=== PATIENT | male | born 1980 | race Caucasian/White ===

== ENCOUNTER 2016-05-21 13:51 | Emergency (ER) | payer SELFPAY ==
[2016-05-21 15:12] LABS: APPEARANCE,URINE SLIGHTLY-CLOUDY; BILIRUBIN,URINE NEGATIVE (NEGATIVE); GLUCOSE, URINE NEGATIVE (NEGATIVE); KETONES,URINE 20 mg/dL (NEGATIVE); LEUKOCYTE ESTERASE,URINE NEGATIVE (NEGATIVE); NITRITE,URINE NEGATIVE (NEGATIVE); PROTEIN,URINE 30 mg/dL (NEGATIVE); URINE SPECIFIC GRAVITY 1.023; UROBILINOGEN,URINE NEGATIVE mg/dL (<2.0)
[2016-05-21 15:19] LABS: ALANINE AMINOTRANSFERASE 57 U/L (21-72); ALKALINE PHOSPHATASE 85 U/L (38-126); ASPARTATE AMINO TRANSFERASE 44 U/L (17-59); BILIRUBIN,TOTAL 1.2 mg/dL (0.2-1.3); BLOOD UREA NITROGEN 28 mg/dL (7-20); CALCIUM 10.5 mg/dL (8.4-10.2); CARBON DIOXIDE 18 mmol/L (22-30); CHLORIDE 99 mmol/L (98-107); CREATININE RESULT 1.43 mg/dL (0.52-1.25); GLUCOSE 105 mg/dL (75-110); POTASSIUM 4.1 mmol/L (3.6-5.0); SODIUM 137.3 mmol/L (137-145); TOTAL PROTEIN 8.1 g/dL (6.3-8.2)
[2016-05-21 15:20] LABS: ALCOHOL < 10 mg/dL (NONE DETECTED); ANION GAP 20 (5-19)
[2016-05-21 15:26] LABS: HEMATOCRIT 41.8 % (37.9-51.0); HEMOGLOBIN 14.4 g/dL (13.5-17.0); HGB HCT DIFFERENCE 1.4; MEAN CORPUSCULAR HEMOGLOBIN 27.6 pg (27.0-33.4); MEAN CORPUSCULAR HGB CONC 34.5 g/dL (32.0-36.0); MEAN CORPUSCULAR VOLUME 80 fl (80-97); RED BLOOD COUNT 5.22 10^6/uL (4.35-5.55); RED CELL DISTRIBUTION WIDTH 13.4 % (11.5-14.0)
[2016-05-21 15:28] LABS: BASOPHILS % (MANUAL) 0 % (0-2); EOSINOPHILS % (MANUAL) 0 % (0-6); LYMPHOCYTES % (MANUAL) 11 % (13-45); TOTAL CELLS COUNTED 100
[2016-05-21 15:28] LABS: URINE BARBITURATES SCREEN NEGATIVE; URINE METHADONE SCREEN NEGATIVE; URINE PHENCYCLIDINE SCREEN NEGATIVE
[2016-05-21 15:30] LABS: RBC MORPHOLOGY COMMENT NORMO-CYTIC/CHROMIC
--- NOTE | 2016-05-21 16:03 | ER Document Report ---
ED Psych Disorder / Suicide - General Mode of Arrival: Ambulatory Information source: Patient TRAVEL OUTSIDE OF THE [place] IN LAST 30 DAYS: No - HPI Patient complains to provider of: Other - see above Onset: Other - see above Associated symptoms: Other - see above <BALTAZAR MICHAELS - Last Filed: 05/21/16 18:37> <MIRNA BOWERS - Last Filed: 05/21/16 21:01> <KIT RUSH - Last Filed: 05/23/16 18:24> - General Chief Complaint: Psych Problem Stated Complaint: PSYCH EVAL Notes: 35 year old male with history of bipolar disorder presents to the ED complaining of difficulty sleeping that began 4-5 days ago and seeking help for mental health. Patient states that he ran away from his and kids because he didn't want them to see him in a manic state. Patient went to [place], but returned approximately 2 months ago. Patient was living at home for a few days before leaving again and staying at a local hotel. Patient states that he was arrested last night at the hotel. Patient explains that he didn't want to be at the house while his 's aunt was there. Patient states he has been manic before and the episode lasts a week, but this one is longer. Patient claims to have a history of PTSD and TBI, but they appear to be false according to his . (BALTAZAR MICHAELS) - Related Data Allergies/Adverse Reactions: No Known Allergies Allergy (Verified 05/23/16 11:21) Home Medications: Current Home Medications Amlodipine Besylate [Norvasc 2.5 mg Tablet] 2.5 mg PO DAILY 05/23/16 [History] Buprenorphine HCl [Subutex 8 mg Sublingual Tablet] 3 tab SL DAILY 05/23/16 [ History] Penicillin V Potassium [Penicillin Vk 500 mg Tablet] 500 mg PO Q6 05/23/16 [ History] Past Medical History - General Information source: Patient - Social History Smoking Status: Current Every Day Smoker Frequency of alcohol use: None Family History: Hypertension - Past Medical History Cardiac Medical History: Reports: Hx Hypercholesterolemia, Hx Hypertension Psychiatric Medical History: Reports: Hx Bipolar Disorder Past Surgical History: Reports: Hx Bowel Surgery - resection in 2003, Hx Orthopedic Surgery - knee reconstruction - Immunizations Hx Diphtheria, Pertussis, Tetanus Vaccination: Yes <BALTAZAR MICHAELS - Last Filed: 05/21/16 18:37> Review of Systems - Review of Systems Constitutional: No symptoms reported EENT: No symptoms reported Cardiovascular: No symptoms reported Respiratory: No symptoms reported Gastrointestinal: No symptoms reported Genitourinary: No symptoms reported Male Genitourinary: No symptoms reported Musculoskeletal: No symptoms reported Skin: No symptoms reported Hematologic/Lymphatic: No symptoms reported Neurological/Psychological: See HPI, Other - difficulty sleeping and having manic episode -: Yes All other systems reviewed and negative <XENIABALTAZAR - Last Filed: 05/21/16 18:37> Physical Exam - General General appearance: Alert, Other - Patient is unable to sit still. In distress: None - HEENT Head: Normocephalic, Atraumatic Eyes: Normal Extraocular movements intact: Yes Pupils: PERRL Mouth/Lips: Other - dental decay of the left lower 1st molar with associated swelling - Respiratory Respiratory status: No respiratory distress Breath sounds: Normal - Cardiovascular Rhythm: Regular, Tachycardia Heart sounds: Normal auscultation Murmur: No - Abdominal Inspection: Normal - Back Back: Normal - Extremities General upper extremity: Normal inspection, Normal ROM General lower extremity: Normal inspection, Normal ROM - Neurological Neuro grossly intact: Yes - Psychological Associated symptoms: Normal affect, Flight of ideas - Skin Skin Temperature: Warm Skin Moisture: Dry Skin Color: Normal <JUSTYN MICHAELSUR - Last Filed: 05/21/16 18:37> Course - Laboratory Result Diagrams: 05/21/16 14:45 05/21/16 14:45 <JUSTYN MICHAELSUR - Last Filed: 05/21/16 18:37> - Laboratory Result Diagrams: 05/21/16 14:45 05/21/16 14:45 - EKG Interpretation by Nh EKG shows normal: Sinus rhythm, [place], Intervals, QRS Complexes, ST-T Waves Rate: Tachycardia - 120 P Waves: LAE <MIRNA BOWERS - Last Filed: 05/21/16 21:01> - Laboratory Result Diagrams: 05/23/16 17:30 05/23/16 17:30 <KIT RUSH - Last Filed: 05/23/16 18:24> - Re-evaluation Re-evalutation: 05/21/16 21:00 IVC paper work was filled out. The patient became sedate after the injection of Haldol, Benadryl, and Ativan. (MIRNA BOWERS) - Vital Signs Vital signs: Temp Pulse Resp BP Pulse Ox 98.5 F 86 18 113/66 95 05/23/16 06:37 05/23/16 06:37 05/23/16 06:37 05/23/16 06:37 05/23/16 06:37 (KIT RUSH) - Laboratory Laboratory results interpreted by me: 05/21/16 05/21/16 05/21/16 14:15 14:45 14:45 WBC 22.0 H Hgb Seg Neuts % (Manual) 87 H Lymphocytes % (Manual) 11 L Monocytes % (Manual) 2 L Abs Neuts (Manual) 19.1 H Carbon Dioxide 18 L Anion Gap 20 H BUN 28 H Creatinine 1.43 H Est GFR (Non-Af Amer) 56 L Calcium 10.5 H Urine Protein 30 H Urine Ketones 20 H Urine Blood SMALL H Salicylates < 1.0 L Acetaminophen < 10 L Valproic Acid 05/23/16 05/23/16 15:32 17:30 WBC Hgb 13.4 L Seg Neuts % (Manual) Lymphocytes % (Manual) Monocytes % (Manual) Abs Neuts (Manual) Carbon Dioxide Anion Gap BUN Creatinine Est GFR (Non-Af Amer) Calcium Urine Protein Urine Ketones Urine Blood Salicylates Acetaminophen Valproic Acid 43.1 L (BALTAZAR MICHAELS) (MIRNA BOWERS) (KIT RUSH) Discharge <BALTAZAR MICHAELS - Last Filed: 05/21/16 18:37> <MIRNA BOWERS - Last Filed: 05/21/16 21:01> <KIT RUSH - Last Filed: 05/23/16 18:24> - Discharge Clinical Impression: Manic psychosis, Bipolar disorder Condition: Stable Disposition: HOME, SELF-CARE Additional Instructions: Bipolar Disorder Bipolar disorder is also called manic-depressive disorder. Depression alternates with brain hyperactivity called prabhjot. Each phase lasts from several days to a few weeks. We don't know exactly what causes bipolar disorder , but it's treatable. During the "manic phase," you may feel elated and energetic. You may have racing thoughts, rapid speech, increased activity, and grandiose ideas. During this time, you may not realize how poor your judgement is. Inappropriate spending, drug abuse, excessive alcohol use, marriage problems, and irresponsible sexual behavior are common during the manic phase. During the "depressive phase," you might feel depressed, guilty, worthless , fatigued, and unable to concentrate. You might have thoughts of suicide. Good treatments are available for bipolar disorder. [place] is a classic drug for bipolar disorder, and is still often useful. If the manic phase is very mild, an antidepressant alone can be prescribed. If the manic phase is very severe, an antipsychotic medicine (such as Haldol) may be needed. The treatment must be matched to your symptoms, so it's important to work closely with your psychiatric care provider. Contact your physician, the hospital emergency center, crisis line, or your counsellor if you are losing control or having self-destructive thoughts. Post-Traumatic Stress Disorder You seem to have post-traumatic stress disorder (PTSD). PTSD can cause chronic anxiety, sleeping problems, social withdrawal, and drug abuse. It can occur following a traumatic personal experience such as an accident, rape, assault, or of a loved one, or after experiencing a war or natural disaster. Symptoms may be delayed for days or even years. Emotional numbing, the inability to express grief, is usually the earliest sign. There may be apathy or agitation, aggression, and inability to perform ordinary tasks. Often there are frightening nightmares and sudden, intruding memories of the trauma. Panic attacks and feelings of guilt are common. Alcohol and drug use make post- traumatic stress symptoms worse. Medication may be temporarily necessary to combat anxiety, panic attacks, and depression. Medicine should not be considered a "cure." You must deal with the trauma and prepare to go on. Group therapy is often helpful. This helps you "talk through" the problem with others who share your symptoms. We can provide you with an appropriate referral. FOLLOW-UP CARE: If you have been referred to a physician for follow-up care, call the physician s office for an appointment as you were instructed or within the next two days. If you experience worsening or a significant change in your symptoms, notify the physician immediately or return to the Emergency Department at any time for re-evaluation. You are advised to keep your appointment to be seen at the [facility] next week. Take the medications prescribed. Return if you have new or worsening symptoms. Prescriptions: Benztropine Mesylate [Cogentin 1 mg Tablet] 1 mg PO DAILY #10 tablet Divalproex Sodium [Depakote ER 500 mg Tab.sr] 500 mg PO BID #20 tab.sr.24h Olanzapine [Zyprexa 5 mg Tablet] 5 mg PO BID #20 tablet Referrals: [facility] [Provider Group] - Follow up in 1 week Scribe Attestation: 05/21/16 18:14 I personally performed the services described in the documentation, reviewed and edited the documentation which was dictated to the scribe in my presence, and it accurately records my words and actions. (MIRNA BOWERS) Scribe Documentation - Scribe Written by Keyon:: Keyon Lopez, 05/21/2016 16:41 acting as scribe for :: Ary <BALTAZAR MICHAELS - Last Filed: 05/21/16 18:37>
[2016-05-21] MEDS ORDERED: HALOPERIDOL LACTATE INJ 5 MG/1 ML VIAL IM ONE (16:04)
[2016-05-21] MEDS ORDERED: LORAZEPAM INJ 2 MG/1 ML VIAL IM ONE (16:04)
[2016-05-21] MEDS ORDERED: DIPHENHYDRAMINE HCL 50 MG/ML VIAL IM ONE (16:04)
--- NOTE | 2016-05-21 16:50 | PSYCHOLOGICAL NOTE ---
Psych Note - Psych Note Psych Note: Patient is a 35 year old male who presents voluntarily seeking assistance for his mental health concerns. Note, patient was seen overnight with his for toot related pain and discharged this morning. Patient at this time presents with flight of ideas and is difficult to follow. Patient does disclose that he has been staying at a hotel for 4 days because his 's family was in town visiting, and he has not slept. He states he has had similar type episodes in the past, but not this bad. Patient reports he is a [employer] and 100% service connected for TBI and PTSD. Patient is not able to provide any additional meaningful information due to mental status. Patient's , Michael Thompson states: the patient has been staying in a hotel for 4 days because her Aunt was visiting. She states he called her in the middle of the night because people were watching him, trying to jump him and fight him, hearing sounds, etc. She states she went there and discovered nothing/no one. She states this happened 2 additional times, and again last night the patient called her stating someone was in his room and they bugged the room to start a prostitution ring. She states [employer] was called because he was escalated and screaming that he lost their daughter. reports she went to the room, and got him and ate food, etc. He was brought to the ED because of the tooth abscess, where he was treated for high BP, etc and discharged. He convinced her that he was ok to go back to the hotel to go to sleep. She reports she tried to visit later in the day, but the manager revenue states he was arrested for breaking and entering, etc. She states she went to [place]osto him out, and he was manic, rambling, accusing her of performing sexual acts on other inmates, etc. She states when they were driving he was upset stating that their car was bugged, etc and she brought him to the ED for help. reports she has never seen this level of paranoia, etc. reports the patient does have a baseline of hypervigelence, and patrols the house and is always in "protective mode." reports they are just now in the process [facility] starting the [facility]. She reports they began the process in November after he lost his job. She states he told her that they fired him, but she is not sure if it is the truth. 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 She states in January, he left her and the kids and went [place] and moved in with another female. She states he returned from [place] April 19 and that is when his paranoia increased. She states the patient form the in February in 2005, but immediately contracted and went to [facility]. She states he ended the contract work in 2011, took a year off for school, etc. She states the patient is prescribed Suboxone for pain, and would often take a Xanax type medication and become a zombie like individual for a week at a time. She states the MD who is prescribing Suboxone , is also prescribing Adderall. She states she is not sure what he has taken or how much. She states he is fixated on her having a boyfriend, etc. She states she has her 8 and 11 year old kids and does have a place for them to go, in addition to concerns over them seeing him at this level. reports his parents are arriving for a visit around midnight, and she will encourage them to come to the house and visit in the morning. Note, is specific to state the patient has not officially been diagnosed with TBI and PTSD. Patient is alert and restless and oriented to name and location and day. Patient 's mood is manic/labile with congruent affects. Patient denies suicidal/ homicidal ideations. Patient presents paranoid. Patient presented with flight of ideas. Conversational speech was pressured and tangential. Intellectual abilities were estimated within average range. Attention and focus were poor. Insight, judgment, and impulse control were poor. 296.80 (F31.9) Unspecified Bipolar and Related Disorder Patient's presenting symptoms (Dominique) are similar to that of a Bipolar Disorder and cause clinically significant distress in all domains of his life At this time and in this setting (ED) there is not enough information to make a more specific diagnosis as often times PTSD can present similar to Bipolar episodes. R/O PTSD Patient is recommended for IVC and to seek 24 hour inpatient psychiatric commitment. Patient presents acutely manic, with paranoia and delusions. The safety concerns noted also include the patient pursuing his delusions resulting in his arrest (going through cars parked at the hotel to detect tracking/ listening devices). Patient has not slept in 4 days, and requires psychiatric intervention for his safety and the safety of others. I consulted with Dr. Owen in regards to the care and management of this patient. ED MD is in agreement with disposition and recommendations.
--- NOTE | 2016-05-21 21:20 | EKG REPORT ---
SEVERITY:- BORDERLINE ECG - SINUS TACHYCARDIA PROBABLE LEFT ATRIAL ABNORMALITY : Confirmed by: Brandon Santoro MD 21-May-2016 21:19:53
[2016-05-21] MEDS: OLANZAPINE 5 MG TAB.RAPDIS PO PRN (22:40)
[2016-05-21] MEDS: BENZTROPINE MESYLATE 1 MG TABLET PO SCH (22:40)
--- NOTE | 2016-05-22 09:25 | ER Document Report ---
Doctor's Note Notes: 05/22/16 09:24 I have evaluated this pt. this am and he has no c/o at this time. He feels all of his needs are being met and his physical exam is normal. He is awaiting disposition per mental health.
[2016-05-22] MEDS: DIVALPROEX SODIUM 500 MG TAB.SR.24H PO SCH ×2 (10:04→17:45)
[2016-05-22] MEDS: OLANZAPINE 5 MG TABLET PO SCH ×2 (10:05→21:31)
[2016-05-22] MEDS: AMOXICILLIN TRIHYDRATE 500 MG CAPSULE PO SCH ×2 (10:05→21:32)
--- NOTE | 2016-05-22 15:50 | ER Document Report ---
Doctor's Note Notes: 05/22/16 15:49 Pt. has asked to take his own suboxone which he takes bid. We have contracted Dr. Owen who has given him permission to do so.
--- NOTE | 2016-05-22 17:15 | PSYCHOLOGICAL NOTE ---
Psych Note - Psych Note Psych Note: Patient is a 35 year old male who is under IVC at [facility] ED after he presented voluntarily seeking assistance while in a manic state. Patient was observed to be responding to internal stimuli, paranoid, etc and subsequently petitioned for IVC by ED MD. Patient initially reported he had not slept x4days; however, has slept all night and throughout this morning with pharmacological intervention. Per the IVC process, patient was referred to psychiatric placements and accepted at 1500 today. Patient's parents have driven down from [place] to visit and present bedside. Patient provided verbal consent to speak with them. Made patient aware this afternoon that he was accepted to [facility] in [place]. Patient expressed discontent with the placement and stated he wanted the help, but wanted to go on his own terms. Patient vacillated between stating he would not go because he wanted to smoke a cigarette. Patient was eventually redirected and remained calm, although fixated on smoking a cigarette. Mother and Father collectively report concerns over patient's long time prescription Suboxone and now Adderall. They asked numerous questions regarding the placement at [facility], and all questions were answered to the best of my ability. Family provided phone number to facility for clarification purposes. Discussed with patient's the likelihood of placement and what is entailed. requested information due to patient's first appearance at court tomorrow morning for the arrest. verbalized she understood, and additionally reported she understood the necessity of the placement. Patient is A&Ox4. Mood is labile with occasionally tearful affect. Patient denies suicidal/homicidal ideations. Patient continues to present with some paranoia, and is upset that people are out to get him. Thought processes were perseverative. Conversational speech was pressured for rate, tone, and prosody. Intellectual abilities were estimated within average range. Attention and focus were fair. Insight, judgment, and impulse control were poor. 296.80 (F31.9) Unspecified Bipolar and Related Disorder Patient's presenting symptoms (Dominique) are similar to that of a Bipolar Disorder and cause clinically significant distress in all domains of his life At this time and in this setting (ED) there is not enough information to make a more specific diagnosis as often times PTSD can present similar to Bipolar episodes. R/O PTSD Patient is recommended for IVC and to follow through with placement at the 24 hour inpatient psychiatric hospital. I consulted with Dr. Owen in regards to the care and management of this patient. ED MD is in agreement with disposition and recommendations.
[2016-05-22] MEDS: BENZTROPINE MESYLATE 1 MG TABLET PO SCH (21:31)
[2016-05-22] MEDS ORDERED: ATORVASTATIN CALCIUM 20 MG TABLET PO SCH (22:00)
[2016-05-22] MEDS ORDERED: BENZTROPINE MESYLATE 1 MG TABLET PO SCH (22:00)
[2016-05-23] MEDS ORDERED: PENICILLIN V POTASSIUM 500 MG TABLET PO SCH
[2016-05-23] MEDS: OLANZAPINE 5 MG TAB.RAPDIS PO PRN (03:01)
[2016-05-23] MEDS ORDERED: OLANZAPINE 5 MG TAB.RAPDIS PO PRN (09:49)
[2016-05-23] MEDS ORDERED: [UNRECOGNIZED DRUG - OTHER] SL SCH (10:00)
[2016-05-23] MEDS: OLANZAPINE 5 MG TABLET PO SCH (10:07)
[2016-05-23] MEDS: AMOXICILLIN TRIHYDRATE 500 MG CAPSULE PO SCH (10:07)
[2016-05-23] MEDS: DIVALPROEX SODIUM 500 MG TAB.SR.24H PO SCH (10:07)
--- NOTE | 2016-05-23 16:48 | PSYCHOLOGICAL NOTE ---
Psych Note - Psych Note Psych Note: Patient is a 35-year-old male who is under involuntary commitment at [facility] ED for psychotic episode. Note patient was evaluated yesterday referred [facility] and [facility]; however due to transportation issues with the [employer] programmer's department patient was unable to follow through with placement. Patient today was reevaluated for continued criteria for involuntary commitment. Patient today is calm and cooperative. Patient Patient's Patient's mother is bedside and requested update into the status of patient's care discussed with mother and patient that his packet was being reviewed by additional hospitals and that [facility] does not have a bed for him today. Answered all questions to the best of my ability regarding the incident last night and what happened with transportation and why he no longer has the bed. Mother reported concerns that the longer the patient sits here waiting to go somewhere the more anxious he will get. 296.80 (F31.9) Unspecified Bipolar and Related Disorder Patient's presenting symptoms (Dominique) are similar to that of a Bipolar Disorder and cause clinically significant distress in all domains of his life At this time and in this setting (ED) there is not enough information to make a more specific diagnosis as often times PTSD can present similar to Bipolar episodes. R/O PTSD
[2016-05-23 17:44] LABS: ABSOLUTE EOSINOPHILS # (AUTO) 0.1 10^3/uL (0.0-0.6); ABSOLUTE LYMPHOCYTES (AUTO) 2.4 10^3/uL (0.5-4.7); ABSOLUTE MONOCYTES (AUTO) 0.8 10^3/uL (0.1-1.4); ABSOLUTE NEUT (AUTO) 3.2 10^3/uL (1.7-8.2); BASOPHILS % (AUTO) 0.6 % (0-2); EOSINOPHILS % (AUTO) 1.5 % (0-6); HEMATOCRIT 38.6 % (37.9-51.0); HEMOGLOBIN 13.4 g/dL (13.5-17.0); HGB HCT DIFFERENCE 1.6; LYMPHOCYTES % (AUTO) 36.1 % (13-45); MEAN CORPUSCULAR HEMOGLOBIN 27.9 pg (27.0-33.4); MEAN CORPUSCULAR HGB CONC 34.8 g/dL (32.0-36.0); MEAN CORPUSCULAR VOLUME 80 fl (80-97); MONOCYTES % (AUTO) 12.4 % (3-13); RED BLOOD COUNT 4.81 10^6/uL (4.35-5.55); SEGMENTED NEUTROPHILS % (AUTO) 49.4 % (42-78); WHITE BLOOD COUNT 6.6 10^3/uL (4.0-10.5)
[2016-05-23 17:53] LABS: ALANINE AMINOTRANSFERASE 49 U/L (21-72); ALBUMIN 3.5 g/dL (3.5-5.0); ALKALINE PHOSPHATASE 57 U/L (38-126); ANION GAP 12 (5-19); ASPARTATE AMINO TRANSFERASE 21 U/L (17-59); BILIRUBIN,TOTAL 0.4 mg/dL (0.2-1.3); BLOOD UREA NITROGEN 16 mg/dL (7-20); CALCIUM 9.4 mg/dL (8.4-10.2); CARBON DIOXIDE 27 mmol/L (22-30); CHLORIDE 102 mmol/L (98-107); CREATININE RESULT 1.11 mg/dL (0.52-1.25); GLUCOSE 103 mg/dL (75-110); SODIUM 140.9 mmol/L (137-145); TOTAL PROTEIN 6.4 g/dL (6.3-8.2)
--- NOTE | 2016-05-23 18:19 | ER Document Report ---
Doctor's Note Notes: 05/23/16 18:17 Rounds: Chart reviewed and patient interviewed. Patient is being evaluated for bipolar disorder with manic behavior as well as PTSD.. He's been stable throughout his stay. Vital signs are normal. His initial WBC count was 22,000 , but he has declined to 6000 this afternoon. His original urinalysis was negative. Abdominal chest x-ray this afternoon it's negative. Patient has no signs or symptoms of infection anywhere. Patient appears to be medically stable for transfer or discharge. Mental health has evaluated the patient feels he can be discharged with prescriptions for Zyprexa and Depakote and [facility]. Heike Hernandez M.D.
[2016-05-23 18:36] VITALS: BP 111/84
== END 2016-05-23 18:45 | disposition home or self-care (01) ==
LOC: ER 13:51
DX: F31.89 Other bipolar disorder (principal); F17.200 Nicotine dependence, unspecified, uncomplicated; E78.00 Pure hypercholesterolemia, unspecified; I10 Essential (primary) hypertension
CPT/HCPCS: 93005; 99285; 96372; 36415; 85025; 80053; 81001; 80164; 71020; 93010; G0479 ×4; J3490 ×2; J1200; J1630; J2060; 80307

== ENCOUNTER → 2016-12-29 | Outpatient (CLI) | payer OTHER ==
--- NOTE | 2016-12-29 11:12 | RADIOLOGY REPORT (SQ) ---
EXAM DESCRIPTION: KNEE LEFT 4 VIEW COMPLETED DATE/TIME: 12/29/2016 10:48 am REASON FOR STUDY: ARTHRITIS COMPARISON: None. NUMBER OF VIEWS: Four views. TECHNIQUE: AP, lateral, and both oblique radiographic images acquired of the left knee. LIMITATIONS: None. FINDINGS: MINERALIZATION: Normal. BONES: No acute fracture or dislocation. No worrisome bone lesions. JOINT: No effusion. SOFT TISSUES: No soft tissue swelling. No radio-opaque foreign body. 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 IMPRESSION: NEGATIVE STUDY OF THE LEFT KNEE. NO RADIOGRAPHIC EVIDENCE OF ACUTE INJURY. TECHNICAL DOCUMENTATION: JOB ID: [id number] [employer]- All Rights Reserved
--- NOTE | 2016-12-29 11:25 | RADIOLOGY REPORT (SQ) ---
EXAM DESCRIPTION: L SPINE 2 VIEWS COMPLETED DATE/TIME: 12/29/2016 10:48 am REASON FOR STUDY: ARTHRITIS COMPARISON: 09/16/2008 NUMBER OF VIEWS: Two views. TECHNIQUE: AP and lateral radiographic images acquired of the lumbar spine. LIMITATIONS: None. FINDINGS: MINERALIZATION: Normal. SEGMENTATION: Normal. No transitional anatomy. ALIGNMENT: Normal. VERTEBRAE: Maintained height. No fracture or worrisome bone lesion. DISCS: Preserved height. No significant osteophytes or end plate irregularity. POSTERIOR ELEMENTS: Pedicles and facets are intact. No pars defect or posterior arch defects. HARDWARE: None in the spine. PARASPINAL SOFT TISSUES: Normal. PELVIS: Intact as visualized. No fractures or worrisome bone lesions. SI joints intact. OTHER: No other significant finding. IMPRESSION: NORMAL 2 VIEW LUMBAR SPINE. TECHNICAL DOCUMENTATION: JOB ID: [id number] [employer]- All Rights Reserved
--- NOTE | 2016-12-29 11:25 | RADIOLOGY REPORT (SQ) ---
EXAM DESCRIPTION: KNEE RIGHT 4 VIEWS COMPLETED DATE/TIME: 12/29/2016 10:48 am REASON FOR STUDY: ARTHRITIS COMPARISON: None. NUMBER OF VIEWS: Four views. TECHNIQUE: AP, lateral, and both oblique radiographic images acquired of the right knee. LIMITATIONS: None. FINDINGS: MINERALIZATION: Normal. BONES: No acute fracture or dislocation. No worrisome bone lesions. JOINT: No joint effusion. There is mild joint space narrowing in all compartments. This is symmetri c. SOFT TISSUES: No soft tissue swelling. No radio-opaque foreign body. OTHER: No other significant finding. IMPRESSION: Mild joint space narrowing in all compartments. No joint effusion. TECHNICAL DOCUMENTATION: JOB ID: [id number] [employer]- All Rights Reserved
== END ==
LOC: RAD 10:02
PROVIDERS: ATTEND Thoracic Surgery (Cardiothoracic Vascular Surgery)
DX: M19.90 Unspecified osteoarthritis, unspecified site (principal); M94.0 Chondrocostal junction syndrome [Tietze]
CPT/HCPCS: 72100

== ENCOUNTER 2017-05-01 09:42 | Emergency (ER) | payer OTHER ==
[2017-05-01 09:53] VITALS: BP 193/111
[2017-05-01] MEDS ORDERED: LIDOCAINE 1% INJ-PF (10 MG/ML) 30 ML SDV INJ ONE (10:40)
[2017-05-01] MEDS ORDERED: CEFTRIAXONE INJ 1000 MG VIAL IM ONE (10:40)
[2017-05-01] MEDS ORDERED: KETOROLAC TROMETHAMINE 60 MG/2 ML SDV IM ONE (10:40)
--- NOTE | 2017-05-01 10:41 | ER Document Report ---
HPI - HPI Patient complains to provider of: mouth pain, dental abscess Onset: Yesterday Onset/Duration: Sudden Quality of pain: Throbbing Severity: Severe Pain Level: 5 Associated Symptoms: None Exacerbated by: Denies Relieved by: Denies Similar symptoms previously: Yes Recently seen / treated by doctor: No - ROS ROS below otherwise negative: Yes Systems Reviewed and Negative: Yes All other systems reviewed and negative - CONSTITUTIONAL Constitutional: DENIES: Fever - EENT EENT: REPORTS: Sore Throat - left oral pain - NEURO Neurology: DENIES: Headache - CARDIOVASCULAR Cardiovascular: DENIES: Chest pain - RESPIRATORY Respiratory: DENIES: Trouble Breathing - GASTROINTESTINAL Gastrointestinal: DENIES: Abdominal Pain - MUSCULOSKELETAL Musculoskeletal: DENIES: Extremity pain Past Medical History - General Information source: Patient - Social History Smoking Status: Current Every Day Smoker Chew tobacco use (# tins/day): No Frequency of alcohol use: None Drug Abuse: None Lives with: Family Family History: Hypertension Patient has suicidal ideation: No Patient has homicidal ideation: No - Past Medical History Cardiac Medical History: Reports: Hx Hypercholesterolemia, Hx Hypertension Psychiatric Medical History: Reports: Hx Bipolar Disorder, Hx Post Traumatic Stress Disorder Past Surgical History: Reports: Hx Bowel Surgery - resection in 2003, Hx Orthopedic Surgery - knee reconstruction - Immunizations Hx Diphtheria, Pertussis, Tetanus Vaccination: Yes Vertical Provider Document - CONSTITUTIONAL Agree With Documented VS: Yes General Appearance: WD/WN, No Apparent Distress - INFECTION CONTROL TRAVEL OUTSIDE OF THE [place] IN LAST 30 DAYS: No - HEENT HEENT: Atraumatic, Normal ENT Exam, Normocephalic Mouth Diagram: 1 - abscess/mild edema to gums 2 - mild edema to face where tooth is - RESPIRATORY Respiratory: Breath Sounds Normal, No Respiratory Distress O2 Sat by Pulse Oximetry: 96 - CARDIOVASCULAR Cardiovascular: Regular Rate, Regular Rhythm - GI/ABDOMEN Gastrointestinal: Abdomen Soft - MUSCULOSKELETAL/EXTREMETIES Musculoskeletal/Extremeties: MAEW - NEURO Level of Consciousness: Awake, Alert, Appropriate - DERM Integumentary: Warm, Dry Notes: no facial redness from abscess Course - Vital Signs Vital signs: Temp Pulse Resp BP Pulse Ox 97.9 F 71 16 193/111 H 96 05/01/17 09:50 05/01/17 09:50 05/01/17 09:50 05/01/17 09:50 05/01/17 09:50 Discharge - Discharge Clinical Impression: Dental abscess Condition: Good Disposition: HOME, SELF-CARE Instructions: Abscess ([facility]), Oral Narcotic Medication ([facility]) Additional Instructions: Take all antibiotics as prescribed Ibuprofen 3 times a day for pain, tramadol as needed You must follow-up with your dentist for further evaluation of dental problems, call for earlier appointment Return as needed Prescriptions: Cephalexin [Cephalexin 500 MG Capsule] 1 cap PO QID #28 capsule Tramadol HCl 50 mg PO TID #10 tablet
== END 2017-05-01 11:27 | disposition home or self-care (01) ==
LOC: ER 09:42
DX: K04.7 Periapical abscess without sinus (principal); F17.200 Nicotine dependence, unspecified, uncomplicated; I10 Essential (primary) hypertension
CPT/HCPCS: 99283; 96372; J1885; J0696